=== PATIENT | male | born 1970 | race Hispanic/Latino ===

== ENCOUNTER 2018-10-02 04:07 | Emergency (ER) | payer SELFPAY ==
[2018-10-02] MEDS ORDERED: Ondansetron PF 4 MG/2 ML Vial ONE (05:32)
[2018-10-02] MEDS ORDERED: Meclizine HCl 25 MG TAB ONE (05:36)
== END 2018-10-02 06:27 | disposition home or self-care (01) ==
LOC: ERS 04:07
DX: R42 Dizziness and giddiness (principal)
CPT/HCPCS: 96374; J2405

== ENCOUNTER 2019-04-27 09:35 | Observation (INO) | payer SELFPAY ==
[2019-04-27 10:10] LABS: #Basophils 0.1 thou/uL (0.0-0.2); #Lymphocytes 2.5 thou/uL (1.20-3.40); #Monocytes 0.6 thou/uL (0.11-0.59); #Neutrophils 3.5 thou/uL (1.40-6.50); %Basophils 1.1 % (0.0-1.0); %Eosinophils 0.6 % (0.0-10.0); %Lymphocytes 37.3 % (21.0-51.0); %Monocytes 8.2 % (0.0-10.0); %Neutrophils 52.8 % (42.0-75.0); Hemoglobin 14.8 g/dL (14.0-18.0); Mean Corpuscular HGB CONC 34.5 g/dL (32.0-36.0); Mean Corpuscular Hemoglobin 31.2 pg (27.0-31.0); Mean Corpuscular Volume 90.2 fL (78.0-98.0); Mean Platelet Volume 9.1 fL (7.4-10.4); Platelet Count 247 thou/uL (130-400); RBC Distribution Width 12.1 % (11.5-14.5); Red Blood Cell (RBC) Count 4.74 mill/uL (4.70-6.10); White Blood Cell (WBC) Count 6.7 thou/uL (4.8-10.8)
--- NOTE | 2019-04-27 10:23 | RAD ---
PA AND LATERAL CHEST: HISTORY: Dizziness. FINDINGS: The heart size is normal. The lungs are expanded without focal areas of consolidation, pneumothoraces or pleural effusions. No acute osseous abnormalities are seen. IMPRESSION: No radiographic evidence of acute cardiopulmonary process. POS: [facility]
[2019-04-27 10:31] LABS: ALT (SGPT) 22 U/L (8-55); AST (SGOT) 15 U/L (5-34); Albumin 4.4 g/dL (3.5-5.0); Alkaline Phosphatase 64 U/L (40-110); Anion Gap 11 mmol/L (10-20); BUN (Urea Nitrogen) 9 mg/dL (8.9-20.6); Bilirubin, Total 0.6 mg/dL (0.2-1.2); Calc. Creatinine Clearance 0 mL/min (70-130); Carbon Dioxide 25 mmol/L (22-29); Chloride 107 mmol/L (98-107); Estimated GFR-MDRD Greater than 90; Globulin 2.8 g/dL (2.4-3.5); Glucose 99 mg/dL (70-105); Potassium 4.4 mmol/L (3.5-5.1); Protein, Total 7.2 g/dL (6.0-8.3); Sodium 139 mmol/L (136-145)
[2019-04-27] MEDS ORDERED: Meclizine HCl 25 MG TAB ONE (10:55)
--- NOTE | 2019-04-27 11:23 | CT ---
CT head with and without IV contrast CT arteriogram chest with IV contrast and 3-D imaging CT arteriogram head with IV contrast and 3-D imaging HISTORY: Vertigo. Dizziness. Altered mental status. FINDINGS: There is no evidence of acute intracranial hemorrhage or infarct. The ventricles appear nor mal in size, shape and position. There is no mass effect, shift of midline structures, or abnormal areas of contrast enhancement. Bovine origin of the great vessels at the aortic arch. Good flow into each internal carotid and verte bral system. No arterial calcification is apparent. Internal carotid arteries are widely patent. [place] is intact. Good flow into each cerebral and cerebellar system. IMPRESSION: No abnormalities are demonstrated.
[2019-04-27] MEDS ORDERED: Aspirin Chewable 81 MG TAB ONE (11:59)
--- NOTE | 2019-04-27 12:17 | PDOC.FPRHP ---
- History of Present Illness Chief Complaint: dizziness History of Present Illness: Patient is a 48M that presents with 3 days of dizziness. Patient is niuean-speaking only and was seen and evaluated in the ED using an bosom presser. 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 He states that the room would start spinning and he would feel weak and tired. He also reports of intermittent occipital headaches and neck pain. He states that he has been working out in the sun for the last 10 days in a row and is unsure if he has stayed hydrated. He was seen for similar symptoms this past August and diagnosed with vertigo and sent home. He also reports that he has had black spots in his vision, though this has been a chronic issue. He endorses some parasthesias of his arms, but notes that this happens when awakes after sleeping on his arms. His feet also go numb after he elevates them for prolonged periods of time. Denies any episodes where his limbs would go weak, denies palpitations. ED Course: 324mg asa, 25mg meclizine - Allergies/Adverse Reactions Allergies Allergy/AdvReac Type Severity Reaction Status Date / Time No Known Drug Allergies Allergy Verified 04/27/19 16:59 - Home Medications Medication Instructions Recorded Confirmed Type No Known 04/27/19 04/27/19 History - History PMHx: none PSHx: none FHx: non-contributory Social: last etoh drink 1 yr ago, no smoking or drug use - Review of Systems General: reports: fatigue. denies: fever/chills, weight/appetite/sleep changes Eyes: reports: vision changes. denies: eye pain ENT: denies: nasal congestion, rhinorrhea Respiratory: denies: cough, shortness of breath Cardiovascular: reports: chest pain (occasional, not currently). denies: palpitation Gastrointestinal: reports: nausea, constipation. denies: vomiting, diarrhea Genitourinary: denies: incontinence, dysuria Skin: denies: rashes, lesions Musculoskeletal: reports: pain (neck pain). denies: swelling Neurological: reports: numbness (occasional foot numbness with elevation), other (arm parasthesias) Psychological: denies: anxiety, depression - Vital signs BP: [139/69] HR: [59] RR: [19] Tmax: [98.7F] Pox: [100]% on [RA] Wt: [63.5kg] - Physical Exam Constitutional: NAD, awake, alert and oriented HEENT: PERRLA, EOMI, grossly normal vision, grossly normal hearing Neck: supple, FROM, trachea midline Chest: no-tender to palpation, no lesions Heart: RRR, normal S1/S2, pulses present Lungs: CTAB, no respiratory distress Abdomen: soft, non-tender, bowel sounds present Musculoskeletal: normal structure, normal tone, ROM grossly normal Neurological: no focal deficit, CN II-XII intact, normal sensation Skin: no rash/lesions, good turgor, capillary refill <2 seconds Heme/Lymphatic: no unusual bruising or bleeding, no purpura Psychiatric: normal mood and affect, good judgment and insight FMR H&P: Results - Labs Result Diagrams: 04/27/19 10:00 04/27/19 10:00 Lab results: WBC 6.7 thou/uL (4.8-10.8) 04/27/19 10:00 Hgb 14.8 g/dL (14.0-18.0) 04/27/19 10:00 Hct 42.8 % (42.0-52.0) 04/27/19 10:00 MCV 90.2 fL (78.0-98.0) 04/27/19 10:00 Plt Count 247 thou/uL (130-400) 04/27/19 10:00 Neutrophils % 52.8 % (42.0-75.0) 04/27/19 10:00 Sodium 139 mmol/L (136-145) 04/27/19 10:00 Potassium 4.4 mmol/L (3.5-5.1) 04/27/19 10:00 Chloride 107 mmol/L (98-107) 04/27/19 10:00 Carbon Dioxide 25 mmol/L (22-29) 04/27/19 10:00 BUN 9 mg/dL (8.9-20.6) 04/27/19 10:00 Creatinine 0.88 mg/dL (0.7-1.3) 04/27/19 10:00 Glucose 99 mg/dL (70-105) 04/27/19 10:00 Calcium 9.0 mg/dL (7.8-10.44) 04/27/19 10:00 Total Bilirubin 0.6 mg/dL (0.2-1.2) 04/27/19 10:00 AST 15 U/L (5-34) 04/27/19 10:00 ALT 22 U/L (8-55) 04/27/19 10:00 Alkaline Phosphatase 64 U/L (40-110) 04/27/19 10:00 Serum Total Protein 7.2 g/dL (6.0-8.3) 04/27/19 10:00 Albumin 4.4 g/dL (3.5-5.0) 04/27/19 10:00 FMR H&P: A/P - Problem List (1) Symptomatic bradycardia Current Visit: Yes Status: Acute Code(s): R00.1 - BRADYCARDIA, UNSPECIFIED (2) Dizziness Current Visit: Yes Status: Acute Code(s): R42 - DIZZINESS AND GIDDINESS (3) Vertigo Current Visit: Yes Status: Acute Code(s): R42 - DIZZINESS AND GIDDINESS - Plan Patient is a 48M with no PMHx that is being admitted to obs for vertigo #Vertigo due to posterior stroke vs symptomatic bradycardia vs orthostatic hypotension -patient reports dizziness with head movement, reports that the room spins -patient's symptoms improved with meclizine -patient had similar episode in august 2018, diagnosed with vertigo at that time -HINTs exam negative, no neurological symptoms, not reproducible with crystal hallpike -CTA [place] negative -meclizine, zofran -ivf -orthostatic hypotension was borderline negative, repeat tmrw morning after fluids -monitor on tele for bradycardia -tylenol prn for headache Diet: HH Fluids: LR @ 110 DVT: lovenox Code: Full Dispo: obs for fluid hydration, meclizine FMR H&P: Upper Level - Pertinent history Pt is a 48yo M with no PMH reports dizziness and weakness while at work for 3 days. Dizziness is associated with ALMENDAREZ and happens with quick movements- going from crouching position to standing. He describes dizziness as room spinning and weakness as if he's about to fall down or faint. ALMENDAREZ is posterior with associated neck pain- comes and goes with rapid motions of his head. Previous hx of similar thing back in August- diagnosed with vertigo- it got better and now its back. Works outside, doing hard labor and dirt work, was working in the sun x10 days and thinks that may be the cause. Denies n/v, hearing impairment, SOB. Reports black specks in vision, occasional CP, and paresthesias of UE at night (long hx). PMH: none Meds: occasional advil for ALMENDAREZ's Social: denies current etoh use, tobacco use, or drug use. - Pertinent findings VS: BP132/76, P59, R18, T98.7, O2100%RA Gen: well appearing, NAD HEENT: PERRLA, EOMI, no nystagmus, no LAD, oropharynx nl with moist MM Lungs: CTAB Cardio: bradycardia, no murmurs or extra sounds Neuro: CN 2-12 intact, sensation equal and intact b/l UE and LE, strength 5/5 UE and LE, negative HINTs exam, negative crystal hallpike b/l Extremities: no edema, pulses 2+ b/l UE and LE MSK: pain with neck extension, normal ROM CT/CTA head and neck: no acute findings CXR: no acute findings Labs: no significant lab findings- normal CBC and CMP, see financial services internship note for values - Plan Date/Time: 04/27/19 [id number] I, Priyanka Sanchez, have evaluated this patient and agree with findings/plan as outlined by financial services internship resident. Pertinent changes/additions are listed here. Dizziness: - Pt poor historian but describes ALMENDAREZ, pre-syncope sx of lightheadedness, and dizziness associated with movement. Currently dizziness resolved s/p meclizine in ED. Orthostatic VS with 12pt drop in pulse from [address]/CTA negative- less likely a posterior stroke with negative HINTS. EKG wnl. Despite negative orthostatics, pt sx sound most consistent with this. Will put on IV maitenance fluids and place on tele obs for monitoring. Continue Meclizine. Dispo: likely <2 midnights Code Status: Full Addendum - Attending - Attending Attestation Date/Time: 04/27/19 1021 I personally evaluated the patient and discussed the management with Dr. Lewis, and Dr. Sanchez I agree with the History, Examination, Assessment and Plan documented above with any addition or exceptions noted below. Obs overnight. Workup pending. Jorge
[2019-04-27] MEDS ORDERED: Famotidine 20 MG TAB PO PRN (13:02)
[2019-04-27] MEDS ORDERED: Ondansetron ODT 4 MG TAB PO PRN (13:04)
[2019-04-27 15:49] VITALS: BMI 26.4
[2019-04-27] MEDS ORDERED: Meclizine HCl 25 MG TAB PO PRN (19:00)
[2019-04-27] MEDS: Lactated Ringer's 1,000 ML IV SCH (19:10)
[2019-04-27] MEDS: Acetaminophen 325 MG TAB PO PRN (19:20)
[2019-04-28] MEDS: Lactated Ringer's 1,000 ML IV SCH ×2 (04:03→13:04)
--- NOTE | 2019-04-28 06:54 | PDOC.FM ---
- Subjective Subjective: Pt is doing well today. He states his symptoms are present with movement of head. The medication helped his symptoms. He remains frontal ALMENDAREZ, neck discomfort. - Objective Vital Signs & Weight: Vital Signs (12 hours) Temp Pulse Resp BP BP Pulse Ox 04/28/19 04:02 51 L 18 120/71 98 04/27/19 23:49 48 L 18 122/70 98 04/27/19 21:06 98.5 F 51 L 16 118/63 99 Weight Weight 67.721 kg I&O: 04/26/19 04/27/19 04/28/19 06:59 06:59 06:59 Intake Total 1600 Balance 1600 Result Diagrams: 04/27/19 10:00 04/27/19 10:00 Phys Exam - Physical Examination Constitutional: NAD HEENT: PERRLA, moist MMs Respiratory: no wheezing, no rales, no rhonchi, clear to auscultation bilateral Cardiovascular: RRR, no significant murmur Gastrointestinal: soft, non-tender, no distention Musculoskeletal: no edema, pulses present Neurological: non-focal, normal sensation, moves all 4 limbs Dizzy with movement of head otherwise no symptoms Psychiatric: normal affect, A&O x 3 Dx/Plan (1) BPPV (benign paroxysmal positional vertigo) Code(s): H81.10 - BENIGN PAROXYSMAL VERTIGO, UNSPECIFIED EAR Status: Acute (2) Dizziness Code(s): R42 - DIZZINESS AND GIDDINESS Status: Acute (3) Vertigo Code(s): R42 - DIZZINESS AND GIDDINESS Status: Acute - Plan Plan: Patient is a 48M with no PMHx that is being admitted to obs for vertigo #Vertigo due to BPPV vs Labrynthitis vs Vestibular Neuritis vs symptomatic bradycardia vs orthostatic hypotension At this time likely BPPV, symptoms reproduced with head movement. Will consider discharge with meclizine and follow up at ENT as this is his second episode. -patient reports dizziness with head movement, reports that the room spins -patient's symptoms improved with meclizine -patient had similar episode in august 2018, diagnosed with vertigo at that time -HINTs exam negative, no neurological symptoms, not reproducible with crystal hallpike -CTA [place] negative -meclizine, zofran -orthostatic hypotension was borderline negative, repeat tmrw morning after fluids -remained bradycardic on tele -tylenol prn for headache Diet: HH Fluids: LR @ 110 DVT: lovenox Code: Full Dispo: likely discharge home today
[2019-04-28] MEDS ORDERED: FLU VACC QS2019-20(6MOS UP)/PF 60 MCG/0.5 ML SYRINGE IM ONE (09:00)
[2019-04-28] MEDS ORDERED: Enoxaparin Sodium 40 MG/0.4 ML SYRINGE SC SCH (09:00)
[2019-04-28 09:32] VITALS: BP 118/66; TEMP 98
[2019-04-28] MEDS: Acetaminophen 325 MG TAB PO PRN (09:43)
--- NOTE | 2019-04-29 00:20 | DIS ---
DATE OF ADMISSION: 04/27/2019 DATE OF DISCHARGE: 04/28/2019 RESIDENT: Tremayne Adams DO ADMITTING ATTENDING: Kali Grove MD DISCHARGE ATTENDING: Tj Ryan MD CONSULTS: None. PROCEDURES PERFORMED: 1. Chest x-ray on 04/27/2019, revealed no radiographic evidence of acute cardiopulmonary disease. 2. CT [place] angio with contrast on 04/27/2019, revealed no evidence of acute intracranial hemorrhage or infarct. The ventricles appeared normal in size, shape and position. There is no mass effect, shift of midline structures, or abnormal areas of contrast enhancement. 3. [place]ovine origin of the great vessels at the aortic arch. Good flow into each internal carotid and vertebral system. No arterial calcifications apparent. Internal carotid arteries are widely patent. 4. Cervical flow was intact. Good flow into each cerebral and cerebellar system. PRIMARY DIAGNOSIS: Benign paroxysmal positional vertigo. SECONDARY DIAGNOSIS: None. DISCHARGE MEDICATIONS: 1. Meclizine 25 mg p.o. q.8 hours p.r.n. 2. Zofran 4 mg p.o. q.6 hours p.r.n. DISCONTINUED MEDICATIONS: None. HISTORY OF PRESENT ILLNESS/HOSPITAL COURSE: Ang Laureano is a 48-year-old male without significant past medical history, who presented to the emergency department for recent history of vertigo. He describes it as room spinning. He had a similar episode to this in August, where he was prescribed meclizine which helped with his symptoms. On this admission, he was again given meclizine, which alleviated his symptoms. He had a negative head CT scan, no acute neuro findings. Although his symptoms were not reproducible with Sal-Hallpike maneuver on examination 04/28/2019, the patient stated the room started spinning when he rotated his head for the nerve exam. He also noted to have a headache on the poor posterior portion of his head and into his neck and frontal headache. Due to his findings on CTA [place], recurrent reproducible symptoms with movement, alleviation of symptoms with meclizine, we thought it was appropriate for him to be discharged at this time and follow up in the outpatient setting with ENT. We also thought about labyrinthitis versus vestibular neuritis in our differential as well as orthostatic hypotension, symptomatic bradycardia. We included symptomatic bradycardia because EKG and telemetry, he was found to have heart rate in the 50s. TIA versus stroke was also considered in the differential, but seem less common given his symptoms were reproducible and alleviated with meclizine. Tylenol alleviated his headache. We did not feel an MRI was needed at this time. DISPOSITION: Stable. DISCHARGE INSTRUCTIONS: 1. Location: [facility]. 2. Diet: Ad dana. No restrictions. 3. Activity: Ad dana. 4. Followup: Follow up with Sherif Mendoza within 7 days. Follow up with primary care provider in the next 1-2 weeks. Job ID: [id number]
--- NOTE | 2019-05-03 13:15 | EKG ---
Test Reason : Blood Pressure : / mmHG Vent. Rate : 066 BPM Atrial Rate : 066 BPM P-R Int : 142 ms QRS Dur : 090 ms QT Int : 428 ms P-R-T Axes : 045 014 026 degrees QTc Int : 448 ms Normal sinus rhythm with sinus arrhythmia Possible Left atrial enlargement Borderline ECG Confirmed by BRIAN CROCKETT, JUAN DANIEL ([id number]), editorial manager LAURA MERRITT ([id number]) on 05/03/2019 1:14:41 PM Referred By: Confirmed By:JUAN DANIEL TORRES MD
== END 2019-04-28 12:59 | disposition home or self-care (01) ==
LOC: ERS 09:35 → 2SW 12:11
PROVIDERS: ADMIT Family Medicine; ATTEND Family Medicine
DX: H81.10 Benign paroxysmal vertigo, unspecified ear (principal)
CPT/HCPCS: 36415; 70496; 70498; 71046; 80053; 84484; 85025; 90471; 90686; 93005; 96360; 96361; G0008; G0378; J1650; J8597